=== PATIENT | male | born 1985 | race Caucasian/White ===

== ENCOUNTER 2021-08-03 19:03 | Emergency (ER) | payer BC | END 2021-08-03 22:09 | disposition home or self-care (01) | LOC: JD.ED 19:03 | DX: F41.9 Anxiety disorder, unspecified (principal); Z87.891 Personal history of nicotine dependence | CPT/HCPCS: 36415; 36600; 71046; 71046-26; 80053; 81001; 82803; 83735; 83880; 84443; 84484; 85025; 85379; 93005; 99284-25 ==

== ENCOUNTER 2021-09-19 08:18 | Emergency (ER) | payer BC ==
[2021-09-19] MEDS ORDERED: Ondansetron 4 MG Tab.DIS PO ONE (08:53)
== END 2021-09-19 09:18 | disposition home or self-care (01) ==
LOC: JD.ED 08:18
DX: R11.2 Nausea with vomiting, unspecified (principal); F41.9 Anxiety disorder, unspecified
CPT/HCPCS: 99283; A9270